=== PATIENT | male | born 1975 | race Caucasian/White ===

== ENCOUNTER 2021-06-10 07:34 | Day surgery (SDC) | payer OTHER, SELFPAY ==
[2021-06-10 08:17] VITALS: BP 139/79; PULSE 74; RESP 16; TEMP 37; O2SAT 99; BMI 23.8
--- NOTE | 2021-06-10 08:27 | HP.PCM_ITS ---
History and Physical Date of Admission: 06/10/21 45 M who presents to the office today for further evaluation of lower GI bleeding. He has never had a colonoscopy. He had some blood in the stool that was seen on 3 occasions. The first 2 episodes of lower GI bleeding have been after he had some diarrhea stools. Initially he thought it was from wiping. However the blood came back when he was not wiping and he did not had any bowel issues. He went to see his primary and when he was checked there was no signs of bleeding or excoriation. He also has had a long history of gastroesophageal reflux disease and has been treating with antacids. He was recently started on omeprazole therapy he denies any dysphagia odynophagia. He denies any chest pain or shortness of breath. ROS Const Constitutional: No anorexia, fatigue, fever(s), weight change or sleep problems Eyes Eyes: No change in vision ENT ENT: No abnormal hearing, difficulty swallowing, mouth lesions, tongue swelling or throat swelling Resp Respiratory: No cough or shortness of breath Cardio Cardiology: No chest pain at rest, chest pain with exertion, shortness of breath or dyspnea on exertion Gastro GI: Positive for other (Hematochezia); No difficulty swallowing Genitourinary Male: No difficulty urinating or burning urination Musc Musculoskeletal: No joint pain, joint swelling, muscle weakness or decreased muscle mass Skin Skin: No hair loss in leg, yellowing of the eye, itchy eyes, rash, skin ulcer or skin swelling Neuro Neurology: No abnormal hearing, abnormal movements, confusion, unsteady gait/balance or memory loss Psych Psychiatric: No anxiety, No confusion and No memory loss Endo Endocrine: No fatigue or weight change Aller/Imm Allergy/Immunologic: No itchy eyes, throat swelling or tongue swelling Rl/Lymp Hematologic/Lymphatic: No easy bleeding, easy bruising or enlarged lymph nodes Exam Const General: cooperative and comfortable Nutritional Appearance: average body habitus and well nourished [facility] Head: normal to inspection Ears: hearing grossly normal bilaterally Nose: external nose normal Face and sinus: normal facial exam Mouth: oral mucosae normal Throat: posterior oropharynx normal Eyes General: appearance normal, both eyes and all related structures Neck Neck: normal visual inspection Chest Chest palpation & inspection: normal inspection of the chest and normal palpation of entire chest wall Resp Effort & Inspection: normal respiratory effort Auscultation: Bilateral: Clear to Auscultation Cardio Palpation: normal PMI Rate: regular rate Rhythm: regular rhythm GI Inspection: normal to inspection Auscultation: normal bowel sounds Percussion: normal to percussion Palpation: no hepatosplenomegaly Skin General: no rashes or lesions noted Neuro General: patient alert Extrem General: normal to inspection Psych Affect: normal affect Quality Reporting Tobacco Screening ([facility]) Smoking Status: Current every day smoker Assessment and Plan Assessment and Plan (1) GERD (gastroesophageal reflux disease): Status: Acute Plan - Dr. Velasquez Friend, DO: He will be screened for Herrera's esophagus because of his long history of gastroesophageal reflux disease requiring the use of PPI. (2) Rectal bleeding: Status: Acute Plan - Dr. Ron Lloyd, DO: To undergo colonoscopy. He was explained the risk, alternatives and benefits of colonoscopy including bleeding, infection, sepsis, perforation, need for emergent . ASA 1. If he does have lower GI bleeding from hemorrhoids he would like to be banded. We also will assess him for anal fissure, diverticular disease and any structural changes that may be seen lower GI tract. I have re-examined the patient. There are no clinical changes since date of exam.
--- NOTE | 2021-06-10 08:30 | EGD_PTH ---
PATIENT: ROCK MOULTON LOC: EN U#:[id number] AGE/SX: 45/M ROOM: RE06/10/[address]: Dr. Ron Lloyd DO : 1975 BED: DIS: 06/10/2021 SPEC #: [id number] RECD: 06/10/21 12:53 STATUS: DEEPA KALLI #: [id number] MG: 06/10/21 08:[address]: Ron Lloyd DEPT: SURGICAL PATHOLOGY RECD BY: Fabi Julio ENTERED: 06/10/21 13:39 SP TYPE: EGD BIOPSY OT DR: Radha Primary Care Phys Tissues: A - Esophagus, NOS B - Gastric mucous membrane C - Duodenum, NOS D - Esophagus, NOS Procedures: Special Stain Group II Surgery Specimen Level IV Alcian Blue/PAS (control) HEADER OPERATION: Colonoscopy, EGD ([facility]) PRE-OP DIAGNOSIS: GERD, rectal bleeding TISSUE SUBMITTED: A ? Distal esophagus biopsy, B ? Gastric antrum biopsy for H. pylori and path, C ? Duodenum biopsy, D ? Proximal esophagus biopsy MICROSCOPIC DIAGNOSIS A. Distal esophagus, biopsy: Gastroesophageal junction with mild chronic inflammation. Focal changes of reflux. No evidence of goblet cell metaplasia. See comment. B. Gastric antrum, biopsy: Chronic gastritis. See comment. C. Duodenum, biopsy: Suggestive of mild Curtis?s gland hyperplasia. D. Proximal esophagus, biopsy: Gastroesophageal junctional mucosa with mild chronic inflammation. No evidence of goblet cell metaplasia. See comment. AM:david 06/11/2021 COMMENT A. Alcian blue/PAS stain with matched control supports the above diagnosis. B. The results of immunohistochemistry for Helicobacter pylori will be reported separately ([id number]). D. Alcian blue/PAS stain with matched control supports the above diagnosis. MICROSCOPIC DESCRIPTION Slides are reviewed. GROSS DESCRIPTION A - Received in fixative is one container labeled with the patient's name and designated distal esophagus biopsy. The specimen consists of multiple irregular fragments of light underwood soft tissue that in aggregate measure 1 x 0.5 x 0.1 cm. The specimen is totally submitted in one cassette. B - Received in fixative is one container labeled with the patient's name and designated antrum biopsy. The specimen consists of one irregular fragment of light underwood soft tissue that measures 0.6 x 0.5 x 0.1 cm. The specimen is totally submitted in one cassette. C - Received in fixative is one container labeled with the patient's name and designated duodenum biopsy. The specimen consists of multiple irregular fragments of light underwood soft tissue that in aggregate measure 0.8 x 0.7 x 0.1 cm. The specimen is totally submitted in one cassette. D - Received in fixative is one container labeled with the patient's name and designated proximal esophagus biopsy. The specimen consists of multiple irregular fragments of light underwood soft tissue that in aggregate measure 1 x 0.2 x .1 cm. The specimen is totally submitted in one cassette. / AM:david 06/10/21 TC:3 CPT: 20742 x4, 58415 x2
--- NOTE | 2021-06-10 08:30 | IMM_PTH ---
PATIENT: ROCK MOULTON LOC: EN U#:[id number] AGE/SX: 45/M ROOM: RE06/10/[address]: Dr. Ron Lloyd DO : 1975 BED: DIS: 06/10/2021 SPEC #: [id number] RECD: 06/10/21 14:26 STATUS: DEEPA MAHAN #: [id number] MG: 06/10/21 08:[address]: Ron Lloyd DEPT: IMMUNOHISTOCHEMISTRY RECD BY: Allie Bradford ENTERED: 06/10/21 14:27 SP TYPE: IMMUNO OT DR: No Primary Care Phys Tissues: B - Stomach, NOS Procedures: H Pylori (initial) PHYSICIAN & INSTITUTION [place] [address] SPECIMEN INFORMATION: Tissue Source: B ? Gastric antrum biopsy Clinical Info: GERD, rectal bleeding Specimen Number: [id number] CPT code: 11796 METHODOLOGY: Deparaffinized sections of prefer/formalin-fixed tissue or PAP/DQ stained slides are incubated with monoclonal/polyclonal antibodies/oligonucleotide probes. Localization is made via biotin free immunoperoxidase method. Appropriate controls are performed and reacted as expected. Results on target cell population are indicated in the following table: RESULTS: ANTIBODY / CLONE RESULT Block B H Pylori (polyclonal) negative These tests were developed and their performance characteristics determined by [facility]. They may not have been cleared or approved by the U.S. Food and Drug Administration. The FDA has determined that such clearance or approval is not necessary. INTERPRETATION: B. Gastric antrum, biopsy: Negative for Helicobacter pylori organisms. AM:david 06/11/2021
[2021-06-10 09:25] VITALS: BP 102/62; BP 139/79; PULSE 58; RESP 16; TEMP 36.2; O2SAT 98
[2021-06-10 09:30] VITALS: BP 116/82; BP 139/79; PULSE 59; RESP 18; O2SAT 98
--- NOTE | 2021-06-10 09:33 | OP.CCLET_ITS ---
02/10/2022 No Primary Care Physician Re : Upper GI endoscopy procedure for Placido Kohli Dear Care Physician This procedure was performed on June. 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 Biopsied. - [place]-colored mucosa suspicious for Herrera's esophagus. Biopsied. - Duodenitis. Biopsied. Recommendations : - Discharge patient to home. - Resume previous diet. - Use Prilosec (omeprazole) 40 mg PO BID for 3 months. - Continue present medications. My findings are described in the full procedure note, which is enclosed. If I can be of further assistance, please feel free to contact me at . Sincerely, Ron Friend, 06/10/2021 9:32:40 AM This report has been signed electronically.
--- NOTE | 2021-06-10 09:33 | OP.EGD_ITS ---
Patient Name: Placido Kohli Procedure Date: 06/10/2021 8:34 AM Date of : 1975 Age: 45 Procedure: Upper GI endoscopy Indications: Heartburn Providers: Ron Lloyd DO Medicines: See the Anesthesia note for documentation of the administered medications Patient Profile: This is a 45 year old male. Refer to note in patient chart for documentation of history and physical. Patient has symptoms of acute heartburn. Complications: No immediate complications. Procedure: Pre-Anesthesia Assessment: - Prior to the procedure, a History and Physical was performed, and patient medications and allergies were reviewed. The patient is competent. The risks and benefits of the procedure and the sedation options and risks were discussed with the patient. All questions were answered and informed consent was obtained. Patient identification and proposed procedure were verified by the physician in the pre-procedure area. Mental Status Examination: alert and oriented. Airway Examination: normal oropharyngeal airway and neck mobility. Respiratory Examination: clear to auscultation. CV Examination: normal. Prophylactic Antibiotics: The patient does not require prophylactic antibiotics. Prior Anticoagulants: The patient has taken no previous anticoagulant or antiplatelet agents. ASA Grade Assessment: II - A patient with mild systemic disease. After reviewing the risks and benefits, the patient was deemed in satisfactory condition to undergo the procedure. The anesthesia plan was to use moderate sedation / analgesia (conscious sedation). Immediately prior to administration of medications, the patient was re-assessed for adequacy to receive sedatives. The heart rate, respiratory rate, oxygen saturations, blood pressure, adequacy of pulmonary ventilation, and response to care were monitored throughout the procedure. The physical status of the patient was re-assessed after the procedure. After obtaining informed consent, the endoscope was passed under direct vision. Throughout the procedure, the patient's blood pressure, pulse, and oxygen saturations were monitored continuously. The Colonoscope was introduced through the mouth, and advanced to the second part of duodenum. The upper GI endoscopy was accomplished without difficulty. The patient tolerated the procedure well. Moderate Sedation: Moderate (conscious) sedation was administered by the endoscopy nurse and supervised by the endoscopist. The patient's oxygen saturation, heart rate, blood pressure and response to care were monitored. Total physician intraservice time was 15 minutes. Scope In: 8:43:32 AM Scope Out: 8:51:45 AM Total Procedure Duration Time 0 hours 8 minutes 13 seconds Findings: The esophagus and gastroesophageal junction were examined with white light and narrow band imaging (NBI) from a forward view and retroflexed position. There were esophageal mucosal changes suggestive of long-segment Herrera's esophagus. These changes involved the mucosa at the upper extent of the gastric folds (40 cm from the incisors) extending to the Z-line (35 cm from the incisors). Diffuse salmon-colored mucosa was present at 37 cm and salmon-colored mucosa was present. Mucosa was biopsied with a cold forceps for histology in a targeted manner at intervals of 1 cm in the lower third of the esophagus. A total of 5 specimen bottles were sent to pathology. Verification of patient identification for the specimen was done. Estimated blood loss was minimal. Two tongues of salmon-colored mucosa were present at 19 cm. The maximum longitudinal extent of these esophageal mucosal changes was 3 cm in length. Biopsies were taken with a cold forceps for histology. Verification of patient identification for the specimen was done. Estimated blood loss was minimal. No other significant abnormalities were identified in a careful examination of the stomach. Scattered moderate inflammation characterized by congestion (edema), erosions and erythema was found in the duodenal bulb. Biopsies were taken with a cold forceps for histology. Biopsies were taken with a cold forceps for histology. Verification of patient identification for the specimen was done. Estimated blood loss was minimal. Patchy mild inflammation characterized by congestion (edema) and erythema was found in the gastric antrum. Biopsies were taken with a cold forceps for histology. Estimated blood loss was minimal. 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 Biopsied. - [place]-colored mucosa suspicious for Herrera's esophagus. Biopsied. - Duodenitis. Biopsied. Recommendation: - Discharge patient to home. - Resume previous diet. - Use Prilosec (omeprazole) 40 mg PO BID for 3 months. - Continue present medications. Procedure Code(s): --- Professional --- 37039, Esophagogastroduodenoscopy, flexible, transoral; with biopsy, single or multiple 38312, 59, Moderate sedation services provided by the same physician or other qualified health palliative care coordinator performing the diagnostic or therapeutic service that the sedation supports, requiring the presence of an independent trained observer to assist in the monitoring of the patient's level of consciousness and physiological status; initial 15 minutes of intraservice time, patient age 5 years or older CPT copyright 2017 [employer]. All rights reserved. The codes documented in this report are preliminary and upon economic development director review may be revised to meet current compliance requirements. Ron Lloyd DO 06/10/2021 9:32:40 AM This report has been signed electronically. Number of Addenda: 1 Note Initiated On: 06/10/2021 8:34 AM Addendum Number: 1 Addendum Date: 02/10/2022 6:08:33 AM MAC was used instead of moderate sedation for the patient. Ron Lloyd DO 02/10/2022 6:08:40 AM This report has been signed electronically.
[2021-06-10 09:35] VITALS: BP 136/83; BP 139/79; PULSE 57; RESP 18; O2SAT 99
--- NOTE | 2021-06-10 09:37 | OP.COLON_ITS ---
Patient Name: Placido Kohli Procedure Date: 06/10/2021 8:52 AM Date of : 1975 Age: 45 Procedure: Colonoscopy Indications: Screening for colorectal malignant neoplasm Providers: Ron Lloyd DO Medicines: See the Anesthesia note for documentation of the administered medications Patient Profile: This is a 45 year old male. Refer to note in patient chart for documentation of history and physical. Patient has symptoms of acute heartburn. Last Colonoscopy: none. The patient's first colonoscopy is today. Complications: No immediate complications. Procedure: Pre-Anesthesia Assessment: - Prior to the procedure, a History and Physical was performed, and patient medications and allergies were reviewed. The patient is competent. The risks and benefits of the procedure and the sedation options and risks were discussed with the patient. All questions were answered and informed consent was obtained. Patient identification and proposed procedure were verified by the physician in the pre-procedure area. Mental Status Examination: alert and oriented. Airway Examination: normal oropharyngeal airway and neck mobility. Respiratory Examination: clear to auscultation. CV Examination: normal. Prophylactic Antibiotics: The patient does not require prophylactic antibiotics. Prior Anticoagulants: The patient has taken no previous anticoagulant or antiplatelet agents. ASA Grade Assessment: II - A patient with mild systemic disease. After reviewing the risks and benefits, the patient was deemed in satisfactory condition to undergo the procedure. The anesthesia plan was to use moderate sedation / analgesia (conscious sedation). Immediately prior to administration of medications, the patient was re-assessed for adequacy to receive sedatives. The heart rate, respiratory rate, oxygen saturations, blood pressure, adequacy of pulmonary ventilation, and response to care were monitored throughout the procedure. The physical status of the patient was re-assessed after the procedure. After I obtained informed consent, the scope was passed under direct vision. Throughout the procedure, the patient's blood pressure, pulse, and oxygen saturations were monitored continuously. The Colonoscope was introduced through the anus and advanced to the terminal ileum. The colonoscopy was performed without difficulty. The patient tolerated the procedure well. The quality of the bowel preparation was good. Moderate Sedation: Moderate (conscious) sedation was administered by the endoscopy nurse and supervised by the endoscopist. The patient's oxygen saturation, heart rate, blood pressure and response to care were monitored. Total physician intraservice time was 15 minutes. Scope In: 8:54:26 AM Scope Withdrawal Time 0 hours 23 minutes 44 seconds Scope Out: 9:21:50 AM Total Procedure Duration Time 0 hours 27 minutes 24 seconds Findings: An anal fissure was found on perianal exam. Hemorrhoids were found on perianal exam. The entire examined colon appeared normal on direct and retroflexion views. Bleeding hemorrhoids were found during retroflexion. The hemorrhoids were moderate, medium-sized and Grade III (internal hemorrhoids that prolapse but require manual reduction). Two bands were successfully placed at the left lateral position. There was no bleeding during the procedure. Impression: - Anal fissure found on perianal exam. - Hemorrhoids found on perianal exam. - The entire examined colon is normal on direct and retroflexion views. - No specimens collected. Recommendation: - Discharge patient to home. - Resume previous diet. - Continue present medications. - Await pathology results. - Repeat colonoscopy in 10 years for surveillance. Procedure Code(s): --- Professional --- G0121, Colorectal cancer screening; colonoscopy on individual not meeting criteria for high risk G0500, Moderate sedation services provided by the same physician or other qualified health hospice care consultant performing a gastrointestinal endoscopic service that sedation supports, requiring the presence of an independent trained observer to assist in the monitoring of the patient's level of consciousness and physiological status; initial 15 minutes of intra-service time; patient age 5 years or older (additional time may be reported with 68431, as appropriate) CPT copyright 2017 [employer]. All rights reserved. The codes documented in this report are preliminary and upon local bulk driver review may be revised to meet current compliance requirements. Ron Lloyd DO 06/10/2021 9:37:11 AM This report has been signed electronically. Number of Addenda: 1 Note Initiated On: 06/10/2021 8:52 AM Addendum Number: 1 Addendum Date: 02/10/2022 6:08:50 AM MAC was used instead of moderate sedation for the patient. Ron Lloyd DO 02/10/2022 6:08:56 AM This report has been signed electronically.
--- NOTE | 2021-06-10 09:38 | OP.CCLET_ITS ---
02/10/2022 No Primary Care Physician Re : Colonoscopy procedure for Placido Kohli Dear Care Physician This procedure was performed on June. My impressions and recommendations are as follows: Impressions : - Anal fissure found on perianal exam. - Hemorrhoids found on perianal exam. - The entire examined colon is normal on direct and retroflexion views. - No specimens collected. Recommendations : - Discharge patient to home. - Resume previous diet. - Continue present medications. - Await pathology results. - Repeat colonoscopy in 10 years for surveillance. My findings are described in the full procedure note, which is enclosed. If I can be of further assistance, please feel free to contact me at . Sincerely, Ron Friend, 06/10/2021 9:37:11 AM This report has been signed electronically.
[2021-06-10 09:40] VITALS: BP 135/75; BP 139/79; PULSE 55; RESP 18; TEMP 36.1; O2SAT 99
[2021-06-10 10:15] VITALS: BP 139/79
== END 2021-06-10 23:59 | disposition home or self-care (01) ==
LOC: EN 07:38 → AC 07:39
PROVIDERS: Visit Provider Internal Medicine Gastroenterology
PROC: 0DJD8ZZ Inspection of Lower Intestinal Tract, Via Natural or Artificial Opening Endoscopic (ICD-10-PCS; CPT 45378; principal; 2021-06-10 08:25)
DX: K29.50 Unspecified chronic gastritis without bleeding (principal); K29.80 Duodenitis without bleeding; K21.9 Gastro-esophageal reflux disease without esophagitis; Z12.11 Encounter for screening for malignant neoplasm of colon; K60.2 Anal fissure, unspecified; K64.2 Third degree hemorrhoids; K92.1 Melena; I10 Essential (primary) hypertension; F17.200 Nicotine dependence, unspecified, uncomplicated; Z79.899 Other long term (current) drug therapy; Z20.822 Contact with and (suspected) exposure to COVID-19
CPT/HCPCS: 45378; 46221; 43239; 87426; 88305; 88313; 88342; J7120; J2405

== ENCOUNTER 2023-07-01 11:31 | Outpatient (CLI) | payer OTHER, SELFPAY ==
--- OUTSIDE RECORDS SUMMARY | 2023-07-01 11:34 | XMS RPT_ITS | CCD ---
Author Name Unknown Address [address] [place] [address] Organization [facility] Care Team Providers Care Supervisor Solder Making Name Role Phone Unavailable Primary Care Provider Kerry Haynes PT, Savanna Unavailable Unavailable DINORAH ROSARIO, ELENA Primary Care Physician Unavailable Primary Care Provider Carlton ROSARIO, ELENA Primary Care Christopher ROSARIO, KAY Attending Christopher edwards Medications Current Medications Medication Drug Class(es) Dates Sig (Normalized) Sig (Original) amLODIPine 10 mg oral tablet (7 sources) Dihydropyridine Calcium Channel Marcella Start: 05-15-2023 End: 08-13-2023 amLODIPine 10 mg oral tablet Dose : 10 mg = 1 tab(s), Oral, qDay, # 30 tab(s), 0 Refill(s), Pharmacy: [facility], 180, cm, 06/09/23 10:00:00 EST, Height, kg, 06/09/23 10:00:00 EST, Dosing Weight Start Date: 06/09/23 Stop Date: 07/09/23 Status: Ordered Completed/Discontinued Medications Medication Drug Class(es) Dates Sig (Normalized) Sig (Original) atomoxetine 80 mg oral capsule (4 sources) Norepinephrine Reuptake Inhibitor Start: 10-02-2020 End: 11-01-2020 atomoxetine 80 mg oral capsule Dose : 80 mg = 1 cap(s), Oral, qAM, Take 80mg capsules once daily after finished with 7 days of 40mg capsules., # 30 cap(s), 0 Refill(s), Pharmacy: [facility]30, ADHD, 180, cm, 09/25/20 15:07:00 EDT, Height, kg, 09/25/20 15:07:00 EDT, Do... Start Date: 10/02/20 Stop Date: 11/01/20 Status: Ordered Problems Active Problems Problem Classification Problem Date Documented Date Episodic/Chronic Administrative/soci al admission (1 source) Repeated prescription; Translations: [Encounter for issue of repeat prescription] 05-15-2023 Episodic Alcohol-related disorders (3 sources) Unhealthy alcohol drinking behavior; Translations: [Alcohol abuse] 10-18-2021 Chronic Attention-deficit, conduct, and disruptive behavior disorders (10 sources) Attention deficit hyperactivity disorder 09-25-2020 Chronic Disorders of lipid metabolism (7 sources) Mixed hypercholesterolemia and hypertriglyceridemia; Translations: [Hypertriglyceridemia] 09-25-2020 Chronic Esophageal disorders (1 source) Gastroesophageal reflux disease 10-10-2022 Chronic Essential hypertension (8 sources) Hypertensive disorder; Translations: [Essential hypertension] Onset: 09-25-2020 Chronic Hypertension with complications and secondary hypertension (1 source) Labile hypertension due to being in a clinical environment; Translations: [White coat syndrome without diagnosis of hypertension] Chronic Malaise and fatigue (1 source) Fatigue 06-09-2023 Episodic Miscellaneous mental health disorders (5 sources) Premature ejaculation; Translations: [Premature ejaculation] Onset: 09-09-2013 Chronic Nutritional deficiencies (3 sources) Vitamin D deficiency 09-20-2021 Chronic Other ear and sense organ disorders (5 sources) Eczema of external auditory canal 09-25-2020 Episodic Other endocrine disorders (2 sources) Male hypogonadism 10-18-2021 Chronic Other male genital disorders (1 source) Impotence 06-09-2023 Chronic Spondylosis; intervertebral disc disorders; other back problems (10 sources) Chronic neck pain 09-25-2020 Episodic Past or Other Problems Problem Classification Problem Date Documented Da te Episodic/Chronic Abdominal hernia (2 sources) Inguinal hernia; Translations: [Unilateral inguinal hernia, without obstruction or gangrene, not specified as recurrent] Onset: 08-09-2013 08-09-2013 Episodic Results Test Name Value Interpretation Reference Range Facil ity Vital Signs Date Time Vital Sign Value Performing Clinician Faci lity 05-15-2023 19:11-0500 Body temperature 97.7 [degF] Rebeka Athy PA-C Work Phone: [facility] 05-15-2023 19:11-0500 Body weight 83.55 kg Rebeka Athy PA-C Work Phone: [facility] 05-15-2023 19:11-0500 Diastolic blood pressure 96 mm[Hg] Rebeka Athy PA-C Work Phone: [facility] 05-15-2023 19:11-0500 Heart rate 78 /min Rebeka Athy PA-C Work Phone: [facility] 05-15-2023 19:11-0500 Respiratory rate 16 /min Rebeka Athy PA-C Work Phone: [facility] 05-15-2023 19:11-0500 SaO2% (BldA) [Mass fraction] 96 % Rebeka Athy PA-C Work Phone: [facility] 05-15-2023 19:11-0500 Systolic blood pressure 164 mm[Hg] Rebeka Athy PA-C Work Phone: [facility] 08-03-2020 18:03-0500 BP Diastolic 82 mm[Hg] [facility] 08-03-2020 18:03-0500 BP Systolic 129 mm[Hg] [facility] 08-03-2020 17:32-0500 Body Temperature 98.91 [degF] [facility] 08-[facility]-2020 17:32-0500 Body weight 83.01 kg [facility] 08-03-2020 17:32-0500 Pulse (Heart Rate) 80 /min [facility] pete 08-03-2020 17:32-0500 Pulse Oximetry 97 % [facility] 08-03-2020 17:32-0500 Respiratory Rate 16 /min [facility] Encounters Encounter Date Encounter Type Care Provider Facility Start: 06-09-2023 End: 06-14-2023 ambulatory ELENA COPELAND [employer] MANAGER Facility:B Start: 06-09-2023 End: 06-13-2023 Outreach Lab KAY TOBIN [employer] MANAGER [facility] Start: 05-15-2023 End: 05-15-2023 ambulatory Facility:[facility] Start: 05-15-2023 End: 05-15-2023 Patient encounter procedure Rebeka Smith PA-C Work Phone: [facility] Procedures Date Procedure Procedure Detail Performing Clinician History of repair of inguinal hernia ELENA COPELAND [employer] MANAGER Plan of Treatment Date Care Activity Detail Author Start: 02-03-2023 Influenza vaccination Influenza Vacc ine (#1) [facility] Start: 06-05-2022 Depression Assessment Depression Ass essment [facility] Start: 02-04-2020 Influenza vaccination INFLUENZA (#1) [facility] Start: 2018 Cologuard (FIT-DNA) Cologuard (FIT-D NA) [facility] Start: 2018 Colonoscopy Colonoscopy [facility] Start: 2018 Colorectal Cancer Screening Colorectal Cancer Screening [facility] Start: [address] Colonography [facility] Start: 2018 DIABETES SCREEN DIABETES SCREEN [facility] Start: 2018 Diabetes Screening Diabetes Screenin g [facility] Start: 2018 Fecal Occult Blood Fecal Occult Bloo d [facility] Start: 2018 Sigmoidoscopy Sigmoidoscopy [facility] Start: 2008 Lipid 1996 panel - S agustín or Plasma Lipid Screening [facility] Start: 2008 LIPID SCREEN LIPID SCREEN [facility] Start: 1992 Urine microalbumin profile [facility] Start: 1991 [facility]IT[facility] Start: 1991 HIV SCREENING HIV SCREENING [facility] Start: 1985 Adult depression scr eening assessment DEPRESSION SCREENING [facility] Start: 1973 Covid-19 Vaccine (#1) Covid-19 Vacci ne (#1) [facility] Start: 1973 Hepatitis B Vaccine (1 of 3 - 3-dose series) Hepatitis B Vaccine (1 of 3 - 3-dose series) [facility] Payers Date Payer Category Payer Unknown MMO MMO [employer] PPO [id number] 2020-Present [phone] [address] [place] [address] PPO [id number] 2020 Unknown [id number] 2020 Unknown MMO MMO [employer] PPO [employer] [id number] 2020-Present PPO [id number] 1973 Unknown [id number] Social History Date Type Detail Facility Start: 09-06-2013 End: 08-03-2020 Tobacco smoking status NHIS Former smoker [facility] Work Phone: Start: 06-16-1999 End: 08-26-2013 History of tobacco use Current smoker [facility] Start: 06-16-1999 End: 08-26-2013 History of tobacco use Cigarette Smoker [facility] Start: 09-06-2013 End: 08-03-2020 Cigarettes smoked current (pack per day) - Reported [facility] Start: 09-06-2013 End: 08-03-2020 Tobacco use and exposure Current user [facility] History of tobacco use Chews Tobacco [facility] Start: 08-03-2020 Alcohol intake Current drinke r of alcohol (finding) [facility] Start: 09-06-2013 Tobacco Comment 1 tin every [address] [facility] Start: 09-06-2013 Alcohol Comment occasional beer [facility] Start: 1975 Sex Assigned At Not on file [facility] Exposure to SARS-CoV -2 (event) Not sure [facility] Start: 08-07-2020 End: 06-09-2023 Heavy tobacco smoker (finding) [facility] Sex Assigned At [facility] Start: 08-03-2020 Tobacco use panel [facility] National Score (1-10 0), lower number is lower risk Not on file [facility] Start: 09-06-2013 Alcohol Comment occasional beer [facility] Medical Equipment Procedure Code Equipment Code Equipment Origin al Text Equipment Identifier Dates Mesh Srg Pariete x [id number] - [id number] Start: 09-11-2013 Clinical Notes 08-10-2020 to 05-15-2023 Rebeka Smith PA-C - 05/15/2023 7:24 PM ESTLaboratoryRadiologyLaboratoryRadiologyRadiologyLaboratory Note Date & Type Note Facility 05-15-2023 Note HNO ID: [id number] Author: Rebeka Smith PA-C Service: ? Author Type: Physician Cafeteria Food Server Type: Progress Notes Filed: 05/15/2023 7:26 PM Note Text: This note was created using [employer]. Subjective Placido Moulton is a 47 year old male. HPI Patient presents with a chief complaint of needing a medication refill. He has a history of hypertension and his doctor left the practice. There is a new physician starting but does not take his insurance currently. He is on valsartan and Norvasc, has been out of the Norvasc for about a month. Is still taking the valsartan. Denies chest pain or shortness of breath. No dizziness. No headache. No leg swelling. Review of Systems Constitutional: Negative. HENT: Negative. Respiratory: Negative. Cardiovascular: Negative. Gastrointestinal: Negative. Genitourinary: Negative. Musculoskeletal: Negative. All other systems reviewed and are negative. PAST MEDICAL HISTORY Diagnosis Date White coat syndrome without diagnosis of hypertension Current Outpatient Medications Medication Sig Dispense Refill valsartan (DIOVAN) 160 mg tablet Take 160 mg by mouth once daily. amLODIPine (NORVASC) 10 mg tablet Take 10 mg by mouth once daily. valsartan (DIOVAN) 160 mg tablet Take 1 tablet by mouth once daily. 90 tablet 0 amLODIPine (NORVASC) 10 mg tablet Take 1 tablet by mouth once daily. 90 tablet 0 No current facility-administered medications for this visit. PAST SURGICAL HISTORY Procedure Laterality Date LAP REPAIR INTIAL INGUINAL HERNIA 09-11-13 BILATERAL PAST SURGICAL HISTORY OF ear tubes- bilateral VASECTOMY 2008 FAMILY HISTORY Problem Relation Age of Onset Allergies Mother Cancer Mother brain Social History Tobacco Use Smoking status: Former Packs/day: 0.80 Years: 14.00 Additional pack years: 0.00 Total pack years: 11.20 Types: Cigarettes Start date: 06/16/1999 Quit date: 08/26/2013 Years since quittin.7 Smokeless tobacco: Current Types: Chew Tobacco comments: 1 tin every 3 days Substance Use Topics Alcohol use: Yes Comment: occasional beer Drug use: No Objective BP 164/96 Pulse 78 Temp 36.5 ?C (97.7 ?F) Resp 16 Wt 83.6 kg (184 lb 3.2 oz) SpO2 96% BMI 24.31 kg/m? Physical Exam Vitals reviewed. Constitutional: Appearance: Normal appearance. HENT: Head: Normocephalic and atraumatic. Cardiovascular: Rate and Rhythm: Normal rate and regular rhythm. Heart sounds: Normal heart sounds. Pulmonary: Effort: Pulmonary effort is normal. Breath sounds: Normal breath sounds. Skin: General: Skin is warm and dry. Findings: No rash. Neurological: Mental Status: He is alert. Assessment and Plan ASSESSMENT/PLAN: 1. Hypertension, essential - ICD9: 401.9, ICD10: I10 (primary diagnosis) Given refill of the amlodipine and valsartan. Discussed that [facility] primary care is not taking new patients however could establish at [place] or [place]. Patient preferred to wait until [facility] physician is able to take his insurance which they told him will happen in the next several weeks. 2. Medication refill - ICD9: V68.1, ICD10: Z76.0 Rebeka Smith PA-C [facility] 05-15-2023 History of Present illness Narrative This note was created using [employer]. Subjective Placido Moulton is a 47 year old male. HPI Patient presents with a chief complaint of needing a medication refill. He has a history of hypertension and his doctor left the practice. There is a new physician starting but does not take his insurance currently. He is on valsartan and Norvasc, has been out of the Norvasc for about a month. Is still taking the valsartan. Denies chest pain or shortness of breath. No dizziness. No headache. No leg swelling. Review of Systems Constitutional: Negative. HENT: Negative. Respiratory: Negative. Cardiovascular: Negative. Gastrointestinal: Negative. Genitourinary: Negative. Musculoskeletal: Negative. All other systems reviewed and are negative. PAST MEDICAL HISTORY Diagnosis Date White coat syndrome without diagnosis of hypertension Current Outpatient Medications Medication Sig Dispense Refill valsartan (DIOVAN) 160 mg tablet Take 160 mg by mouth once daily. amLODIPine (NORVASC) 10 mg tablet Take 10 mg by mouth once daily. valsartan (DIOVAN) 160 mg tablet Take 1 tablet by mouth once daily. 90 tablet 0 amLODIPine (NORVASC) 10 mg tablet Take 1 tablet by mouth once daily. 90 tablet 0 No current facility-administered medications for this visit. PAST SURGICAL HISTORY Procedure Laterality Date LAP REPAIR INTIAL INGUINAL HERNIA 09-11-13 BILATERAL PAST SURGICAL HISTORY OF ear tubes- bilateral VASECTOMY 2008 FAMILY HISTORY Problem Relation Age of Onset Allergies Mother Cancer Mother brain Social History Tobacco Use Smoking status: Former Packs/day: 0.80 Years: 14.00 Additional pack years: 0.00 Total pack years: 11.20 Types: Cigarettes Start date: 06/16/1999 Quit date: 08/26/2013 Years since quittin.7 Smokeless tobacco: Current Types: Chew Tobacco comments: 1 tin every 3 days Substance Use Topics Alcohol use: Yes Comment: occasional beer Drug use: No Objective BP 164/96 Pulse 78 Temp 36.5 C (97.7 F) Resp 16 Wt 83.6 kg (184 lb 3.2 oz) SpO2 96% BMI 24.31 kg/m Physical Exam Vitals reviewed. Constitutional: Appearance: Normal appearance. HENT: Head: Normocephalic and atraumatic. Cardiovascular: Rate and Rhythm: Normal rate and regular rhythm. Heart sounds: Normal heart sounds. Pulmonary: Effort: Pulmonary effort is normal. Breath sounds: Normal breath sounds. Skin: General: Skin is warm and dry. Findings: No rash. Neurological: Mental Status: He is alert. Assessment and Plan ASSESSMENT/PLAN: 1. Hypertension, essential - ICD9: 401.9, ICD10: I10 (primary diagnosis) Given refill of the amlodipine and valsartan. Discussed that [facility] primary care is not taking new patients however could establish at [facility] or [place]. Patient preferred to wait until [facility] physician is able to take his insurance which they told him will happen in the next several weeks. 2. Medication refill - ICD9: V68.1, ICD10: Z76.0 Rebeka Smith PA-C documented in this encounter [facility] 08-10-2020 Evaluation + Plan note Future Scheduled TestsHepatic Function Panel 08/10/20Lipid Profile 08/10/20XR Spine Cervical AP/LAT 11/06/20 [facility] Evaluation + Plan note Future Appointments Appointment Date:04/16/2021 04:30:00 PM Scheduled Provider:ELENA COPELAND Location:[facility] Appointment Type: Wellness Annual Future Scheduled TestsHepatic Function Panel 08/10/20Lipid Profile 08/10/20XR Spine Cervical AP/LAT 11/06/20 [facility] Evaluation + Plan note Future Appointments Appointment Date:10/15/2021 04:00:00 PM Scheduled Provider:ELENA COPELAND Location:[facility] Appointment Type:PC OV Follow Up Diagnostic Tests PendingTestosterone Level Total 10/12/21 Future Scheduled TestsXR Spine Cervical AP/LAT 11/06/20 [facility] Evaluation + Plan note Future Appointments Appointment Date:01/17/2022 04:00:00 PM Scheduled Provider:ELENA COPELAND Location:[facility] Appointment Type:PC OV Follow Up Diagnostic Tests PendingTestosterone, Free and Total 11/20/21 [facility] Evaluation + Plan note Future Appointments Appointment Date:07/07/2023 04:00:00 PM Scheduled Provider:KAY TOBIN Location:[facility] Appointment Type:PC OV Follow Up Future Scheduled TestsThyroid Stimulating Hormone 06/09/23Free T4 06/09/23Complete Blood Count 06/09/23Complete Blood Count 10/10/22Lipid Profile 06/09/23Lipid Profile 10/10/22Vitamin D Level 06/09/23Vitamin D Level 10/10/22Complete Metabolic Panel 06/09/23Complete Metabolic Panel 10/10/22 [facility] Narrative No data available for this section [facility] Hospital Discharge instructions No data available for this section [facility] Progress note No data available for this section [facility] History of Present Illness * Jose Martinez - 08/03/2020 5:40 PM EST Patient presents with: Blood Pressure: bp running high for cdl physical, would not pass it HPI: 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 BP was mid 160s/90s. Recheck was still around 190/90. He had a similar reading at the pharmacy. He does not have a home BP cuff. 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 Denies chest pain, shortness of breath, dizziness, palpitations, or edema. Denies diarrhea or constipation. He has gained about 20# the last few months by eating healthy and more consistently. He would like to quit smoking. He drinks a 6 pack of beer about 5 times a week. He is unsure of any FHx of HTN. No known PMHx PAST SURGICAL HISTORY Procedure Laterality Date LAP REPAIR INTIAL INGUINAL HERNIA 09-11-13 BILATERAL PAST SURGICAL HISTORY OF ear tubes- bilateral VASECTOMY 2008 MEDICATIONS: No prescriptions on file. ALLERGIES: ALLERGIES No Known Allergies VITALS: BP 180/100 Pulse 80 Temp 37.2 C (98.9 F) (Tympanic) Resp 16 Wt 83 kg (183 lb) SpO2 97% BMI 24.15 kg/m BP true machine after interview and exam: 149/83, 139/74, 129/82 Last 6 Encounter BP Readings: Date: BP: 08/03/2020 180/100 04/16/2014 122/72 09/09/2013 150/74 09/06/2013 142/80 08/29/2013 175/77 08/28/2013 138/76 Last 6 Encounter Wt Readings: Date: Wt: 08/03/2020 83 kg (183 lb) 04/16/2014 75.8 kg (167 lb) 09/09/2013 72.6 kg (160 lb) 09/06/2013 75 kg (165 lb 5.5 oz) 08/29/2013 75 kg (165 lb 5.5 oz) 08/28/2013 74.8 kg (165 lb) PHYSICAL EXAM: GEN: pleasant, no acute distress, alert HEENT: PERRL, EOMI, MMM NECK: supple, no lymphadenopathy, no thyromegaly HEART: regular rate, regular rhythm, no murmurs LUNGS: clear to auscultation, no wheezes or crackles, no increased WOB ABD: soft, non-distended, no masses palpated, non-tender, no abdominal bruits. EXT: no clubbing, no cyanosis, no edema ASSESSMENT/PLAN: 1. White coat syndrome without diagnosis of hypertension - ICD9: 796.2, ICD10: R03.0 Significant improvement with BP recheck. I do not recommend starting on a BP medication tonight. Rx for - BLOOD PRESSURE CUFF Keep follow up with primary care (has appointments at [facility] 08/07/20 and here 08/18/20). Advised anxiety, alcohol, weight gain, and smoking all have negative effects on BP. Jose Maritnez MD documented in this encounter Assessments Diagnosis White coat syndrome without diagnosis of hypertension- Primary Elevated blood pressure reading without diagnosis of hypertension Summary Purpose Family History No Family History Records Found No data available for this section No Family History Records Found Advance Directives No Advanced Directives Records FoundNo Advanced Directives Records Found Additional Source Comments Source Comments (unrecognize d section and content) In the event this informatio n is protected by the Federal Confidentiality of Alcohol and Drug Abuse Patient Records regulations: The Federal rules restrict any use of the information to criminally investigate or prosecute any alcohol or drug abuse patient.[facility] the event this information is protected by the Federal Confidentiality of Alcohol and Drug Abuse Patient Records regulations: The Federal rules restrict any use of the information to criminally investigate or prosecute any alcohol or drug abuse patient.[facility] Reason for Visit (unrecogniz ed section and content) Reason Comments Medication Problem requesting valsartan and norvasc refill out of medication x 1 month Care Team (unrecognized sect ion and content) Personnel Name: ELENA COPELAND Address: [address] [place] [address] Name: Gely Haynes PT Personnel Name: ELENA COPELAND Address: [address] [place] [address] Name: Gely Haynes PT Care Team Personnel Name: Gely Haynes PT Position: P3 Scheduling - Quality Assurance Monitor Body Advanced Member Role: Other Name: ELENA COPELAND Position: P4 Advanced Body Sander Member Role: Primary Care Physician Address: Address: [address] [place] [address] Care Team Related Persons Name: RICK MOULTON (unrecognized sect ion and content) No Status Records FoundNo Status Records Found INFORMATION SOURCE (unrecogn ized section and content) DATE CREATED AUTHOR AUTHOR'S CHRIS WOODS 06/15/2023 [facility] (ID) FOR RECORDS PERTAINING TO PATIENTS WHO ARE OR HAVE BEEN ENROLLED IN A CHEMICAL DEPENDENCY/SUBSTANCEABUSE PROGRAM, SOME INFORMATION MAY BE OMITTED. This clinical summary was aggregated from multiple sources. Caution should be exercised in using it in the provision of clinical care. This summary normalizes information from multiple sources, and as a consequence, information in this document may materially change the coding, format and clinical context of patient data. In addition, data may be omitted in some cases. CLINICAL DECISIONS SHOULD BE BASED ON THE PRIMARY CLINICAL RECORDS. [facility] [facility]. provides no warranty or guarantee of the accuracy or completeness of information in this document.
[2023-07-01 12:22] LABS: Hematocrit 39.2 % (40-54); Hemoglobin 13.4 g/dL (13.0-16.5); Mean Corp Hgb Conc 34.2 g/dL (32-36); Mean Corpuscular Hgb 35.4 pg (27.0-32.0); Mean Corpuscular Volume 103.4 fL (80-94); Mean Platelet Vol. 9.6 fl (6.2-12.0); Platelet Count 159 K/mm3 (150-450); RBC Distribution Width CV 12.3 % (11.6-14.6); RBC Distribution Width SD 46.9 fl (35.1-43.9); Red Blood Count 3.79 M/mm3 (4.6-6.2); White Blood Count 4.3 K/mm3 (4.4-11.0)
[2023-07-01 12:51] LABS: AST(SGOT) 24 U/L (15-37); Alanine Aminotransfer ALT/SGPT 29 U/L (16-61); Albumin, Serum 3.8 g/dL (3.2-5.0); Alkaline Phosphatase 80 U/L (45-117); Anion Gap 6 (5-15); BUN 7 mg/dL (7-18); BUN/Creat Ratio 9.7 RATIO (10-20); Calcium,Total 9.3 mg/dL (8.5-10.1); Chloride 104 mmol/L (98-107); Cholesterol 272 mg/dL (200); Creatinine, Serum 0.72 mg/dL (0.70-1.30); EST Glomerular Filtration Rate 122 mL/min (>60); Est Glom Filt Rate - Afr Amer 148 mL/min (>60); Globulin 3.7 g/dL (2.2-4.2); Glucose 108 mg/dL (74-106); High Density Lipoprotein 64 mg/dL; Potassium 3.7 mmol/L (3.5-5.1); Protein, Total 7.5 g/dL (6.4-8.2); Sodium Level 134 mmol/L (136-145); T4 Free Direct 0.73 ng/dL (0.76-1.46); Triglycerides 387 mg/dL; Very Low Density Lipoprotein 77 mg/dL (5-40)
[2023-07-03 08:21] LABS: Vitamin D,25 Hydroxy 20.4 ng/mL
[2023-07-03 14:22] LABS: Microalbumin:Creatinine Ratio 5.9 mg/g CRE (<30 mg/g CRE)
== END 2023-07-01 23:59 | disposition home or self-care (01) ==
LOC: LAB 11:32
PROVIDERS: Referring Provider Nurse Practitioner Family; Visit Provider Nurse Practitioner Family
DX: I10 Essential (primary) hypertension (principal); E78.2 Mixed hyperlipidemia; E55.9 Vitamin D deficiency, unspecified; R53.83 Other fatigue
CPT/HCPCS: 36415; 80053; 80061; 82043; 82306; 82570; 84439; 84443; 85027

== ENCOUNTER 2023-10-20 13:44 | Emergency (ER) | payer OTHER, SELFPAY ==
[2023-10-20 13:47] VITALS: BP 162/83; BP 162/93; PULSE 97; RESP 20; TEMP 36.4; O2SAT 96; BMI 22.1
--- NOTE | 2023-10-20 13:50 | EKG12_ITS ---
Test Reason : CP Blood Pressure : / mmHG Vent. Rate : 087 BPM Atrial Rate : 087 BPM P-R Int : 106 ms QRS Dur : 114 ms QT Int : 388 ms P-R-T Axes : 049 034 059 degrees QTc Int : 466 ms Sinus rhythm with short LA Incomplete right bundle branch block Moderate voltage criteria for LVH, may be normal variant ( Sokolow-Rojas , David product ) Borderline ECG Confirmed by Raf Ortiz ([id number]), order editor LASHON HERNANDEZ ([id number]) on 10/23/2023 8:55:45 AM Referred By: YONATHAN/CLAUDETTE Confirmed By:Raf Ortiz
[2023-10-20 14:07] LABS: Absolute Neutrophil Count 4.7 X10^3/uL (2.0-7.7); Basophil# 0.01 X10^3/uL; Basophil% 0.2 % (0-1); Eosinophil# 0.01 X10^3/uL; Eosinophils% 0.2 % (0-5); Hematocrit 40.6 % (40-54); Hemoglobin 13.9 g/dL (13.0-16.5); Lymphocyte % 15.9 % (19-41); Mean Corp Hgb Conc 34.2 g/dL (32-36); Mean Corpuscular Hgb 35.2 pg (27.0-32.0); Mean Corpuscular Volume 102.8 fL (80-94); Mean Platelet Vol. 9.6 fl (6.2-12.0); Monocyte% 9.5 % (0-10); NRBC Flagged by Analyzer 0 % (0-5); Neutrophil # 4.67 X10^3/uL (2.7-7.7); Platelet Count 107 K/mm3 (150-450); RBC Distribution Width CV 12.7 % (11.6-14.6); RBC Distribution Width SD 48.2 fl (35.1-43.9); Red Blood Count 3.95 M/mm3 (4.6-6.2); White Blood Count 6.3 K/mm3 (4.4-11.0)
--- NOTE | 2023-10-20 14:15 | RAD_ITS ---
HISTORY: chest pain. TECHNIQUE: XR Chest 1 View. COMPARISON: None. FINDINGS: CARDIOMEDIASTINAL BORDERS: Cardiac silhouette within normal limits in size. Mediastinal contour unremarkable. LUNGS: Radiographically clear. PLEURA: No pleural effusion or pneumothorax seen. OSSEOUS STRUCTURES: Unremarkable. RAD/Chest 1 View (Portable) IMPRESSION: No acute cardiopulmonary process identified. Electronically Signed: Thi Grayson MD at 14:39 EDT ,
[2023-10-20 14:24] LABS: Anion Gap 10 (5-15); BUN 13 mg/dL (7-18); BUN/Creat Ratio 14.2 RATIO (10-20); Calcium,Total 9.4 mg/dL (8.5-10.1); Chloride 102 mmol/L (98-107); Creatinine, Serum 0.91 mg/dL (0.70-1.30); EST Glomerular Filtration Rate 93 mL/min (>60); Est Glom Filt Rate - Afr Amer 113 mL/min (>60); Estimated Creatinine Clearance 104.49 ml/min; Glucose 135 mg/dL (74-106); Potassium 3.5 mmol/L (3.5-5.1); Sodium Level 134 mmol/L (136-145); Troponin-I HS (w/2H Reflex) 8 pg/mL (3.0-78.0)
--- NOTE | 2023-10-20 14:43 | ED.VIS.CHEST ---
HPI History of Present Illness Chief Complaint: Chest Pain Narrative Narrative: 48-year-old male presenting with chest pain. He states is left-sided. He states he works third shift last night and notes that he did have some chili cheese fries overnight. He has a history of acid reflux but states it does not feel the same and is not having dyspepsia but notes left-sided chest pain which she describes as sharp and achy. Started at 10 AM. It lasted about an hour until 11 and then slowly taper down. He is currently pain-free. Denies lightheadedness, dizziness, nausea. He did state that he felt like he was having palpitations and his heart was racing and he felt a little short of breath during his episode. No fevers, chills, cough. Patient is a smoker. He states he quit drinking about a week ago because on cholesterol medications and was told that it would cause problems dehydration. [facility] Medical History Injury Wears glasses Alcohol use Heartburn Hypertension Shortness of breath on exertion Smoker Tobacco abuse Rectal bleeding GERD (gastroesophageal reflux disease) Home Medications ?Medication ?Instructions ?Recorded ?Last Taken ?Type amlodipine 5 mg tablet 5 mg PO DAILY 06/08/21 Unknown History ergocalciferol (vitamin D2) 25,000 50,000 unit PO WE 06/08/21 Unknown History unit capsule multivitamin 1 tab PO DAILY 06/08/21 Unknown History omeprazole 40 mg capsule,delayed 40 mg PO BID #60 caps 06/10/21 Unknown Rx release sucralfate 1 gram tablet (Carafate) 1 g PO QA #90 tabs 06/14/21 Unknown Rx Allergy/AdvReac Type Severity Reaction Status Date / Time No Known Allergies Allergy Verified 10/20/23 13:46 Surgical History History of inguinal hernia repair, bilateral Social History Smoking Status: Current every day smoker tobacco type: cigarettes ROS ROS ED Constitutional Constitutional ED: Denies chills, fever(s) or sweats Eyes Eyes: Denies blurry vision or change in vision ENT ENT ED: Denies ear pain or sore throat Cardiovascular Cardiovascular: Reports chest pain, palpitations and racing heartbeat Respiratory/Chest Respiratory/Chest: Reports dyspnea; Denies cough or sputum Gastrointestinal Gastrointestinal: Denies abdominal pain, constipation, diarrhea, nausea or vomiting Genitourinary Genitourinary ED: Denies dysuria, hematuria or urinary frequency Musculoskeletal Musculoskeletal: Denies arthralgias, myalgias or neck pain Integumentary Denies abscess, Abrasions or rash Neurologic Neurologic: Denies headache(s), paresthesias or weakness Psychiatric Psychiatric: Denies anxiety, depression, suicidal ideation or suicidal thoughts Endocrine Endocrinology: Denies polydipsia or polyuria EXAM Physical Exam Const Vital Signs: 10/20/23 13:47 10/20/23 13:47 10/20/23 14:29 Temperature 97.5 F L Temperature Source Temporal Pulse Rate 97 Respiratory Rate 20 H Blood Pressure 162/83 H 162/93 H Blood Pressure Mean 109 116 Pulse Ox 96 Oxygen Delivery Method Room Air Room Air 10/20/23 14:45 10/20/23 15:00 10/20/23 16:00 Temperature Temperature Source Pulse Rate 86 84 72 Respiratory Rate 16 16 21 H Blood Pressure 156/96 H 150/90 H 145/92 H Blood Pressure Mean 116 110 109 Pulse Ox 99 99 96 Oxygen Delivery Method Room Air Room Air Room Air Positive well nourished General Appearance ED: NAD; Negative for pallor HEENT Reports moist mucous membranes normocephalic and atraumatic Eyes PERRL and EOMs intact bilaterally Resp normal respiratory effort and clear to auscultation bilaterally Auscultation: Negative for rales, rhonchi or wheezes Cardio regular rate and regular rhythm Neuro oriented x3 and CN's II-XII intact bilaterally Sensorium / Orientation: awake and alert Psych mental status grossly normal Skin no rashes or lesions noted General Skin Exam: Negative for jaundice or pallor Heart Score History: Slightly/Non-Suspicious ECG: Normal Age: >45 - <65 years Risk Factors: >/= 3 Risk Factors or History of CAD Score: 3 MDM MDM MDM Narrative Medical decision making narrative: 48-year-old male with history of hypertension, hyperlipidemia, and he is also a smoker presenting with chest pain. Differential includes but is not limited to ACS, pneumonia, muscle strain, costochondritis, GERD. Considered PE however patient is PERC negative. There is no risk factors for PE. CBC will be obtained to assess white blood cell count, hemoglobin, platelets. BMP to assess renal function, electrolytes. High-sensitivity troponin EKG to assess for ischemia/dysrhythmia. Chest x-ray pneumonia. EKG on my interpretation shows a sinus rhythm at 87 bpm without sign of ischemic change. Chest x-ray my interpretation shows no acute cardiopulmonary process. Radiologist interprets and agrees. CBC shows normal white blood cell count of 6.3. Hemoglobin 13.9. Platelets are 107 slightly low they have also been low in the past. Renal function and electrolytes unremarkable. Will obtain delta troponin. Delta troponin is 9. Patient has been chest pain-free. We discussed his workup he feels comfortable going home. I recommended follow-up with his PCP. Return precautions were discussed. Impression: 1. Chest pain Lab Data Attestation: I reviewed the patient's lab results. Labs: Laboratory Results - last 24 hr 10/20/23 10/20/23 14:00 16:15 WBC 6.3 RBC 3.95 L Hgb 13.9 Hct 40.6 MCV 102.8 H MCH 35.2 H MCHC 34.2 RDW Std Deviation 48.2 H RDW Coeff of Radu 12.7 Plt Count 107 L MPV 9.6 Immature Gran % (Auto) 0.200 Neut % (Auto) 74.0 H Lymph % (Auto) 15.9 L Bay % (Auto) 9.5 Eos % (Auto) 0.2 Baso % (Auto) 0.2 Absolute Neuts (auto) 4.7 Absolute Lymphs (auto) 1.00 Nucleated RBC % 0 Sodium 134 L Potassium 3.5 Chloride 102 Carbon Dioxide 22.0 Anion Gap 10 BUN 13 Creatinine 0.91 Estim Creat Clear Calc 104.49 Est GFR (MDRD) Af Amer 113 Est GFR (MDRD) Non-Af 93 BUN/Creatinine Ratio 14.2 Glucose 135 H Calcium 9.4 Troponin I High Sens 8 9 Radiography Diagnostic Testing: Clinical Impression(s) from Imaging Studies Chest X-Ray 10/20/23 14:15 IMPRESSION: No acute cardiopulmonary process identified. Electronically Signed: Thi Grayson MD at 14:39 EDT Reading Location ID and State: [facility] / [place] Tel , Service support , Discharge Plan Triage Chief Complaint: Chest Pain ED Provider: Oliverio Johnston Dx/Rx/DC Orders Instructions: ED Chest Pain, Noncardiac Prescriptions: No Action multivitamin Tablet 1 tab PO DAILY amlodipine 5 mg Tablet 5 mg PO DAILY Vitamin D2 25,000 unit Capsule 50,000 unit PO WE omeprazole 40 mg capsule,delayed release(DR/EC) 40 mg PO BID Qty: 60 3RF sucralfate [Carafate] 1 gram tablet 1 g PO QAC Qty: 90 0RF Rx Instructions: Take one tab three times a day, one hour before meals on an empty stomach for thirty days. Primary Care Provider: KAY TOBIN Referrals: KAY TOBIN, [facility] [Primary Care Provider] - Print Language: Citizen Of [place] Disposition Disposition: Home, Self Care
[2023-10-20 14:45] VITALS: BP 156/96; PULSE 86; RESP 16; O2SAT 99
[2023-10-20 15:00] VITALS: BP 150/90; PULSE 84; RESP 16; O2SAT 99
[2023-10-20 16:00] VITALS: BP 145/92; PULSE 72; RESP 21; O2SAT 96
[2023-10-20 16:01] LABS: Reflex Troponin-HS? (from REC) Y
[2023-10-20 16:46] LABS: Troponin-I HS 9 pg/mL (3.0-78.0)
[2023-10-20 17:07] VITALS: BP 146/69; PULSE 69; RESP 19; TEMP 36.4; O2SAT 96
== END 2023-10-20 17:10 | disposition home or self-care (01) ==
PROVIDERS: Emergency Provider Student in an Organized Health Care Education/Training Program; PCP Nurse Practitioner Family; Visit Provider Student in an Organized Health Care Education/Training Program
DX: R07.9 Chest pain, unspecified (principal); F17.210 Nicotine dependence, cigarettes, uncomplicated
CPT/HCPCS: 71045; 80048; 84484; 85025; 93005; 99283; A4216